=== PATIENT | female | born 1940 | race African-American/Black ===

== ENCOUNTER 2020-03-21 09:50 | Inpatient (IN) | payer MEDICARE, OTHER ==
[~2020-03-21] VITALS: Ht 167.6 cm; Wt 99.8 kg
[2020-03-21 10:53] LABS: BASOPHILS % 0.5 % (0.0-2.0); HEMATOCRIT. 47.9 % (36.0-48.0); LYMPHOCYTES % 9.9 % (20.0-50.0); MEAN CORPUSCULAR VOLUME 83.8 fL (81.0-99.0); MEAN PLATELET VOLUME 8.1 fl (7.4-10.4); MONOCYTES % 2.9 % (2.0-8.0); NEUTROPHILS % 86.7 % (40.0-76.0); PLATELET 271 x1000/uL (130-400); RED BLOOD CELL COUNT 5.71 mill/uL (4.2-5.4); RED CELL DISTRIBUTION WIDTH 16.6 % (11.6-14.6)
[2020-03-21 11:00] LABS: CHLORIDE 104 mEq/L (98-107)
[2020-03-21 11:03] LABS: PROTHROMBIN TIME 10.8 sec (9.6-11.0)
[2020-03-21] MEDS ORDERED: CLOPIDOGREL 75MG TABLET PO ONE (11:45)
[2020-03-21] MEDS ORDERED: ASPIRIN 325MG EC TABLET PO ONE (11:45)
[2020-03-21] MEDS: HYDRALAZINE 20MG/ML VIAL IV PRN ×2 (14:46→21:56)
[2020-03-21 15:11] LABS: CLARITY URINE CLEAR (CLEAR); COLOR URINE YELLOW (YELLOW); KETONES URINE 1+ (NEGATIVE); LEUKOCYTE ESTERASE URINE TRACE (NEGATIVE); NITRITE URINE NEGATIVE (NEGATIVE); OCCULT BLOOD URINE TRACE (NEGATIVE); PROTEIN URINE 2+ (NEGATIVE); SPECIFIC GRAVITY URINE 1.021 (1.005-1.030); UROBILINOGEN URINE 0.2 E.U./dL (0.2-1.0)
[2020-03-21] MEDS ORDERED: TRAZODONE HCL 50MG TABLET PO PRN (20:00)
[2020-03-21] MEDS ORDERED: ATORVASTATIN CALCIUM 40MG TABLET PO SCH (21:00)
[2020-03-21] MEDS: HEPARIN 5000 UNITS/ML VIAL SUBCUT SCH (21:55)
[2020-03-21 22:00] VITALS: BP 180/100
[2020-03-21] MEDS: ACETAMINOPHEN 325MG TABLET PO PRN (22:09)
[2020-03-22] VITALS: BP 156/76
[2020-03-22] MEDS: ONDANSETRON HCL 4MG/2ML INJ IV PRN ×2 (00:21→08:50)
[2020-03-22 04:00] VITALS: BP 142/81
[2020-03-22] MEDS: ACETAMINOPHEN 325MG TABLET PO PRN ×2 (05:21→22:06)
[2020-03-22 06:48] LABS: HEMATOCRIT. 43.4 % (36.0-48.0); HEMOGLOBIN. 14.3 g/dL (12.0-16.0); MEAN CORPUSCULAR HEMOGLOBIN 27.6 pg (28.0-32.0); MEAN CORPUSCULAR VOLUME 83.5 fL (81.0-99.0); MEAN PLATELET VOLUME 8.1 fl (7.4-10.4); PLATELET 267 x1000/uL (130-400); RED CELL DISTRIBUTION WIDTH 16.6 % (11.6-14.6)
[2020-03-22 06:57] LABS: CHLORIDE 107 mEq/L (98-107)
[2020-03-22 07:10] LABS: LDL CHOLESTEROL 122 mg/dL (5-100)
[2020-03-22 07:12] LABS: T4 FREE 1.18 ng/dL (0.76-1.46)
[2020-03-22 07:13] LABS: HDL CHOLESTEROL 61 mg/dL (40-59)
[2020-03-22 08:00] VITALS: BP 146/76
[2020-03-22] MEDS: HEPARIN 5000 UNITS/ML VIAL SUBCUT SCH ×2 (08:50→22:08)
[2020-03-22] MEDS ORDERED: GADOBENATE DIMEGLUMINE 529 MG/ML 10ML IV ONE (09:38)
[2020-03-22 12:00] VITALS: BP 181/97
[2020-03-22] MEDS: ASPIRIN 81MG TABLET PO SCH (12:16)
[2020-03-22 12:23] LABS: PLATELET ESTIMATE NORMAL
[2020-03-22] MEDS: HYDRALAZINE 20MG/ML VIAL IV PRN (13:12)
[2020-03-22] MEDS: SODIUM CHLORIDE 0.9% 1,000 ML IV SCH ×2 (13:13→23:08)
[2020-03-22] MEDS ORDERED: PIPERACILLIN/TAZOBACTAM 3.375 G/VIAL IV SCH (14:00)
[2020-03-22] MEDS: PIPERACILLIN/TAZOBACTAM 3.375 G in DEXT 5% WATER 100 ML IV SCH ×2 (15:54→22:06)
[2020-03-22 16:00] VITALS: BP 167/96
[2020-03-22 16:57] LABS: CREATINE KINASE 273 IU/L (26-192)
[2020-03-22 20:00] VITALS: BP 152/78
[2020-03-22] MEDS: ATORVASTATIN CALCIUM 40MG TABLET PO SCH (22:06)
[2020-03-23] VITALS (7 sets, daily range): BP systolic 106–209; BP diastolic 63–95
[2020-03-23] MEDS ORDERED: CEFTRIAXONE 1 G PREMIX 50 ML IV SCH (01:00)
[2020-03-23] MEDS: HYDRALAZINE 20MG/ML VIAL IV PRN ×3 (05:11→20:21)
[2020-03-23 06:27] LABS: BASOPHILS % 0.7 % (0.0-2.0); EOSINOPHILS % 0.2 % (0.0-5.0); HEMATOCRIT. 42.2 % (36.0-48.0); HEMOGLOBIN. 13.9 g/dL (12.0-16.0); MEAN CORPUSCULAR HEMOGLOBIN 27.9 pg (28.0-32.0); MEAN CORPUSCULAR VOLUME 84.6 fL (81.0-99.0); MEAN PLATELET VOLUME 8.5 fl (7.4-10.4); NEUTROPHILS % 72.1 % (40.0-76.0); PLATELET 252 x1000/uL (130-400); RED BLOOD CELL COUNT 4.99 mill/uL (4.2-5.4); RED CELL DISTRIBUTION WIDTH 17.2 % (11.6-14.6)
[2020-03-23 06:30] LABS: CHLORIDE 108 mEq/L (98-107)
[2020-03-23] MEDS: ASPIRIN 81MG TABLET PO SCH (09:34)
[2020-03-23] MEDS: HEPARIN 5000 UNITS/ML VIAL SUBCUT SCH ×2 (09:35→21:07)
[2020-03-23 11:37] LABS: SODIUM URINE RANDOM < 5 mEq/L
[2020-03-23] MEDS: SODIUM CHLORIDE 0.9% 1,000 ML IV SCH (17:29)
[2020-03-23] MEDS: ATORVASTATIN CALCIUM 40MG TABLET PO SCH (21:06)
[2020-03-24] VITALS: BP 133/70
[2020-03-24] MEDS: CEFTRIAXONE 1,000 MG in DEXTROSE 5% WATER 50 ML IV SCH (01:20)
[2020-03-24] MEDS: ACETAMINOPHEN 325MG TABLET PO PRN (03:55)
[2020-03-24 04:00] VITALS: BP 140/72
[2020-03-24] MEDS: SODIUM CHLORIDE 0.9% 1,000 ML IV SCH (06:19)
[2020-03-24 07:03] LABS: CHLORIDE 111 mEq/L (98-107)
[2020-03-24 07:10] LABS: PHOSPHORUS 3.8 mg/dL (2.5-4.9)
[2020-03-24 07:11] LABS: BASOPHILS % 0.7 % (0.0-2.0); EOSINOPHILS % 0.3 % (0.0-5.0); HEMATOCRIT. 40.3 % (36.0-48.0); HEMOGLOBIN. 13.3 g/dL (12.0-16.0); LYMPHOCYTES % 16.5 % (20.0-50.0); MEAN CORPUSCULAR VOLUME 84.5 fL (81.0-99.0); MEAN PLATELET VOLUME 8.5 fl (7.4-10.4); MONOCYTES % 8.8 % (2.0-8.0); NEUTROPHILS % 73.7 % (40.0-76.0); PLATELET 234 x1000/uL (130-400); RED BLOOD CELL COUNT 4.77 mill/uL (4.2-5.4); RED CELL DISTRIBUTION WIDTH 16.7 % (11.6-14.6)
[2020-03-24 08:00] VITALS: BP 188/97
[2020-03-24 08:10] LABS: MICROALBUMIN RANDOM URINE 124.2 ug/mL (Not Estab.)
[2020-03-24] MEDS: ASPIRIN 81MG TABLET PO SCH (09:22)
[2020-03-24] MEDS: HYDRALAZINE 20MG/ML VIAL IV PRN (09:22)
[2020-03-24] MEDS: HEPARIN 5000 UNITS/ML VIAL SUBCUT SCH ×2 (09:22→21:03)
[2020-03-24 12:00] VITALS: BP 175/89
[2020-03-24] MEDS: LOSARTAN POTASSIUM 50 MG TABLET PO SCH (13:06)
[2020-03-24] MEDS: AMLODIPINE 10MG TABLET PO SCH (13:07)
[2020-03-24 15:38] VITALS: BP 159/71
[2020-03-24 20:00] VITALS: BP 127/59
[2020-03-24] MEDS: ATORVASTATIN CALCIUM 40MG TABLET PO SCH (21:02)
[2020-03-25] VITALS: BP 108/59
[2020-03-25] MEDS: CEFTRIAXONE 1,000 MG in DEXTROSE 5% WATER 50 ML IV SCH (00:07)
[2020-03-25 04:00] VITALS: BP 123/74
[2020-03-25 07:52] LABS: BASOPHILS % 0.9 % (0.0-2.0); EOSINOPHILS % 1.8 % (0.0-5.0); HEMATOCRIT. 39.4 % (36.0-48.0); LYMPHOCYTES % 19.1 % (20.0-50.0); MEAN CORPUSCULAR HEMOGLOBIN 27.9 pg (28.0-32.0); MEAN PLATELET VOLUME 8.8 fl (7.4-10.4); MONOCYTES % 9.1 % (2.0-8.0); NEUTROPHILS % 69.1 % (40.0-76.0); PLATELET 228 x1000/uL (130-400); RED BLOOD CELL COUNT 4.64 mill/uL (4.2-5.4); RED CELL DISTRIBUTION WIDTH 16.9 % (11.6-14.6)
[2020-03-25 08:00] VITALS: BP 168/75
[2020-03-25 08:29] LABS: CHLORIDE 110 mEq/L (98-107)
[2020-03-25] MEDS: ASPIRIN 81MG TABLET PO SCH (09:17)
[2020-03-25] MEDS: LOSARTAN POTASSIUM 50 MG TABLET PO SCH (09:18)
[2020-03-25] MEDS: AMLODIPINE 10MG TABLET PO SCH (09:18)
[2020-03-25] MEDS: HEPARIN 5000 UNITS/ML VIAL SUBCUT SCH ×2 (09:19→21:24)
[2020-03-25 12:00] VITALS: BP 156/72
[2020-03-25] MEDS ORDERED: BISACODYL 5MG TABLET PO PRN (13:45)
[2020-03-25] MEDS: DOCUSATE SODIUM 250MG CAPSULE PO SCH (14:05)
[2020-03-25 16:00] VITALS: BP 144/88
[2020-03-25 20:00] VITALS: BP 132/64
[2020-03-25] MEDS: ATORVASTATIN CALCIUM 40MG TABLET PO SCH (21:23)
[2020-03-25] MEDS: ACETAMINOPHEN 325MG TABLET PO PRN (21:23)
[2020-03-26] VITALS: BP 131/78
[2020-03-26] MEDS: CEFTRIAXONE 1,000 MG in DEXTROSE 5% WATER 50 ML IV SCH (00:37)
[2020-03-26 04:00] VITALS: BP 143/76
[2020-03-26 06:45] LABS: BASOPHILS % 1.1 % (0.0-2.0); EOSINOPHILS % 3.4 % (0.0-5.0); HEMATOCRIT. 39.5 % (36.0-48.0); HEMOGLOBIN. 12.9 g/dL (12.0-16.0); LYMPHOCYTES % 23.6 % (20.0-50.0); MEAN CORPUSCULAR HEMOGLOBIN 28.1 pg (28.0-32.0); MEAN CORPUSCULAR VOLUME 85.9 fL (81.0-99.0); MEAN PLATELET VOLUME 8.4 fl (7.4-10.4); MONOCYTES % 8.2 % (2.0-8.0); NEUTROPHILS % 63.7 % (40.0-76.0); PLATELET 224 x1000/uL (130-400); RED CELL DISTRIBUTION WIDTH 16.8 % (11.6-14.6)
[2020-03-26 07:03] LABS: CHLORIDE 109 mEq/L (98-107)
[2020-03-26 08:00] VITALS: BP 109/55
[2020-03-26] MEDS ORDERED: CLOPIDOGREL 75MG TABLET PO SCH (09:00)
[2020-03-26] MEDS: LOSARTAN POTASSIUM 50 MG TABLET PO SCH ×2 (09:00→16:29)
[2020-03-26] MEDS: AMLODIPINE 2.5MG TABLET PO SCH ×3 (09:00→21:11)
[2020-03-26] MEDS: METOPROLOL TARTRATE 25MG TABLET PO SCH ×2 (09:00→21:12)
[2020-03-26] MEDS: DOCUSATE SODIUM 250MG CAPSULE PO SCH (09:54)
[2020-03-26] MEDS: ASPIRIN 81MG TABLET PO SCH (09:55)
[2020-03-26 12:00] VITALS: BP 150/70
[2020-03-26 16:00] VITALS: BP 166/87
[2020-03-26 20:00] VITALS: BP 141/83
[2020-03-26] MEDS: ATORVASTATIN CALCIUM 40MG TABLET PO SCH (21:11)
[2020-03-27] VITALS: BP 135/70
[2020-03-27] MEDS: CEFTRIAXONE 1,000 MG in DEXTROSE 5% WATER 50 ML IV SCH (00:50)
[2020-03-27 04:42] VITALS: BP 121/57
[2020-03-27 08:00] VITALS: BP 147/77
[2020-03-27] MEDS: LOSARTAN POTASSIUM 50 MG TABLET PO SCH (09:29)
[2020-03-27] MEDS: DOCUSATE SODIUM 250MG CAPSULE PO SCH (09:29)
[2020-03-27] MEDS: METOPROLOL TARTRATE 25MG TABLET PO SCH ×2 (09:29→21:45)
[2020-03-27] MEDS: AMLODIPINE 2.5MG TABLET PO SCH ×2 (09:29→21:45)
[2020-03-27] MEDS: ASPIRIN 81MG TABLET PO SCH (09:30)
[2020-03-27 12:00] VITALS: BP 152/83
[2020-03-27 16:00] VITALS: BP 138/86
[2020-03-27 20:00] VITALS: BP 142/68
[2020-03-27] MEDS: ATORVASTATIN CALCIUM 40MG TABLET PO SCH (21:45)
[2020-03-28] VITALS (7 sets, daily range): BP systolic 129–185; BP diastolic 63–92
[2020-03-28] MEDS: ACETAMINOPHEN 325MG TABLET PO PRN ×2 (00:34→06:40)
[2020-03-28] MEDS: ASPIRIN 81MG TABLET PO SCH (08:27)
[2020-03-28] MEDS: AMLODIPINE 2.5MG TABLET PO SCH ×2 (08:28→21:46)
[2020-03-28] MEDS: METOPROLOL TARTRATE 25MG TABLET PO SCH ×2 (08:28→21:46)
[2020-03-28] MEDS: DOCUSATE SODIUM 250MG CAPSULE PO SCH (08:28)
[2020-03-28] MEDS: LOSARTAN POTASSIUM 100 MG TABLET PO SCH (08:28)
[2020-03-28] MEDS ORDERED: BISA5TAB10 PO (12:31)
[2020-03-28] MEDS ORDERED: CLOP75TA15 PO (12:31)
[2020-03-28] MEDS ORDERED: TRAZ-251 PO (12:31)
[2020-03-28] MEDS ORDERED: HYDR-4134 MT (12:31)
[2020-03-28] MEDS ORDERED: LOSA100T3 PO (12:31)
[2020-03-28] MEDS ORDERED: METO25TA6 PO (12:31)
[2020-03-28] MEDS ORDERED: AMLO2.5T45 PO (12:31)
[2020-03-28] MEDS ORDERED: TOPUD PO (12:31)
[2020-03-28] MEDS ORDERED: LIP40 PO (12:31)
[2020-03-28] MEDS ORDERED: ASPI-1160 PO (12:31)
[2020-03-28] MEDS ORDERED: DOCU250C14 PO (12:31)
[2020-03-28] MEDS: HYDRALAZINE HCL 25MG TABLET PO SCH ×2 (13:56→21:46)
[2020-03-28] MEDS: ATORVASTATIN CALCIUM 40MG TABLET PO SCH (21:45)
[2020-03-28] MEDS ORDERED: CLONIDINE 0.1MG TABLET PO NR (23:51)
[2020-03-29] VITALS: BP 142/76
[2020-03-29 04:00] VITALS: BP 120/62
[2020-03-29] MEDS: HYDRALAZINE HCL 25MG TABLET PO SCH (06:13)
[2020-03-29 08:00] VITALS: BP 154/71
[2020-03-29] MEDS: METOPROLOL TARTRATE 25MG TABLET PO SCH (08:34)
[2020-03-29] MEDS: AMLODIPINE 2.5MG TABLET PO SCH (08:35)
[2020-03-29] MEDS: DOCUSATE SODIUM 250MG CAPSULE PO SCH (08:35)
[2020-03-29] MEDS: LOSARTAN POTASSIUM 100 MG TABLET PO SCH (08:35)
[2020-03-29] MEDS: ASPIRIN 81MG TABLET PO SCH (08:35)
[2020-03-29 12:00] VITALS: BP 140/73
[2020-03-29] MEDS ORDERED: HYDR-4135 MT (13:00)
[2020-03-29] MEDS ORDERED: CLOPIDOGREL 75MG TABLET PO SCH (13:15)
[2020-03-29] MEDS ORDERED: HYDRALAZINE HCL 50MG TABLET PO SCH (14:00)
[2020-03-29 16:00] VITALS: BP 157/82
[2020-03-30] MEDS ORDERED: AMLODIPINE 5MG TABLET PO SCH (09:00)
== END 2020-03-29 18:00 | DRG 871 ==
LOC: ER 09:50 → 8WST 19:31 → EDBEDREQTM 19:34 → EDBEDREQ 19:34 → ENRESERV 20:33 → 7WST 03-22 10:41 → 5WST 03-23 20:35
PROVIDERS: ADMIT Internal Medicine; ATTEND Internal Medicine
DX: A41.9 Sepsis, unspecified organism (principal); I63.9 Cerebral infarction, unspecified; I16.1 Hypertensive emergency; N17.9 Acute kidney failure, unspecified; N39.0 Urinary tract infection, site not specified; G81.94 Hemiplegia, unspecified affecting left nondominant side; E87.6 Hypokalemia; E78.5 Hyperlipidemia, unspecified; K52.9 Noninfective gastroenteritis and colitis, unspecified; N18.9 Chronic kidney disease, unspecified; R73.9 Hyperglycemia, unspecified; K80.20 Calculus of gallbladder without cholecystitis without obstruction; D72.810 Lymphocytopenia; H55.09 Other forms of nystagmus; I13.10 Hypertensive heart and chronic kidney disease without heart failure, with stage 1 through stage 4 chronic kidney disease, or unspecified chronic kidney disease; E66.01 Morbid (severe) obesity due to excess calories; R13.10 Dysphagia, unspecified; Z79.899 Other long term (current) drug therapy; Z87.891 Personal history of nicotine dependence; Z79.82 Long term (current) use of aspirin; Z86.73 Personal history of transient ischemic attack (TIA), and cerebral infarction without residual deficits; Z68.35 Body mass index [BMI] 35.0-35.9, adult; Z03.818 Encounter for observation for suspected exposure to other biological agents ruled out
CPT/HCPCS: 36415; 70544; 70553; 71045; 74176; 76705; 80053; 80061; 81003; 82043; 82550; 82570; 83036; 83735; 84100; 84300; 84439; 84443; 84484; 85025; 87635; 93005; 93306; 93880; 93970; 95816; 96374; 97112; 97163; 97166; 97530; 99285; A9577; J0360; J0696; J1644; J2405; J2543; J7030; J7060